=== PATIENT | male | born 1980 | race Caucasian/White ===

== ENCOUNTER → 2017-06-08 | Outpatient (CLI) | payer OTHER ==
[~2017-06-08] MED LIST: ALBU1AER9 INH; GABA-113 PO; GADAVIST IV PRN; LEVE500T26 PO; OXYC-609 PO; SYMIN160 INH; TIZA4CAP PO; TRAM-10 PO
--- NOTE | 2017-06-08 13:29 | DIAGNOSTIC IMAGING REPORT ---
MRI OF THE BRAIN COMBO CLINICAL HISTORY: Brain tumor. Seizure. COMPARISON STUDY: MRI of the brain dated 12/18/2013. TECHNIQUE: MRI of the brain was performed utilizing various T1 and T2-weighted sequences in the axial, sagittal, and coronal planes. Contrast-enhanced sequences were acquired following the administration of 7 cc of Gadavist. The examination is performed using the seizure protocol. FINDINGS: Brain parenchyma: A small focus of right temporal encephalomalacia is unchanged. No recurrent or residual enhancing soft tissue is identified at the operative site. No enhancing mass lesion is seen. The brain parenchyma is otherwise normal in appearance. There is no hemorrhage or mass effect. There is no restricted diffusion to suggest acute ischemia. Donohue-white matter differentiation is preserved. No extra-axial fluid collection is seen. The cerebellar tonsils are normal in configuration. The hippocampi are normal and symmetric. Ventricles, sulci, and cisterns: Normal in configuration. Pituitary and sella: Unremarkable. Intracranial vasculature: Normal flow voids are maintained at the skull base. Orbits: The bony orbits are grossly intact. Orbital contents are normal in appearance. Sinuses and mastoids: Subcentimeter retention cyst are noted in the maxillary antra. The paranasal sinuses and mastoid air cells are otherwise clear. Calvarium: Findings are consistent with previous right temporal craniotomy. No destructive calvarial lesion is identified. Cervical cord: Partially visualized cervical spinal cord is normal in morphology and signal intensity. IMPRESSION: 1. There is no acute intracranial abnormality. 2. Again seen are postoperative changes with minimal right temporal lobe encephalomalacia as above. There is no evidence of recurrent or residual enhancing soft tissue lesion. Electronically signed by: Thai Magdaleno M.D. 06/08/2017 1:28 PM Dictated Date/Time: 06/08/2017 1:19 PM
== END | disposition home or self-care (01) ==
LOC: C.MRI 12:12
PROVIDERS: ATTEND Family Medicine
DX: D43.2 Neoplasm of uncertain behavior of brain, unspecified (principal)